=== PATIENT | female | born 1965 | race Caucasian/White ===

== ENCOUNTER 2017-09-06 12:48 | Emergency (ER) | payer MEDICAID ==
[2017-09-06 12:49] VITALS: BMI 27.9
[2017-09-06 13:01] VITALS: TEMP 98.5
[2017-09-06] MEDS ORDERED: Oxycodone/Acetaminophen 5/325 mg Tab PO STA (13:19)
[2017-09-06] MEDS ORDERED: Oxycodone/Acetaminophen 5/325 mg Tab ONE (13:32)
--- NOTE | 2017-09-06 13:39 | C.PDOC ---
History Of Present Illness 51 yo female w/PMhx of RhA, Osteoporosis come in for evaluation of lower back pain, left ihp pain developed 2 weeks ago after sustained mechanical fall. Pt also c/o left hand pain over 5th finger, noted some bruising for past few days. Otherwise, pt denies head injury, LOC, syncope, denies sever headache, dizziness , neck pain, visual changes, focal deficits, CP, SOB, dyspnea, diaphoresis, abd. pain, denies new weakness, sensory tor vascular deficits, denies obvious deformity. Time Seen by Provider: 09/06/17 13:07 Chief Complaint (Nursing): Upper Extremity Problem/Injury History Per: Patient Past Medical History Reviewed: Historical Data, Nursing Documentation, Vital Signs Vital Signs: Last Vital Signs Temp 98.5 F 09/06/17 12:57 Pulse 107 H 09/06/17 12:57 Resp 18 09/06/17 12:57 BP 104/68 09/06/17 12:57 Pulse Ox 97 09/06/17 13:42 - Medical History PMH: Anxiety, Arthritis (Chronic), Asthma, Back Problems (Herniated Discs), HTN , Hypothyroidism, Rheumatoid Arthritis Family History: States: Unknown Family Hx - Social History Hx Tobacco Use: Yes (Decreased from 2.5ppd to 4 cig/day) Hx Alcohol Use: No Hx Substance Use: No - Immunization History Hx Tetanus Toxoid Vaccination: Yes Hx Influenza Vaccination: Yes Hx Pneumococcal Vaccination: Yes Review Of Systems Except As Marked, All Systems Reviewed And Found Negative. Constitutional: Negative for: Fever, Chills Eyes: Negative for: Vision Change ENT: Negative for: Ear Discharge, Nose Discharge Cardiovascular: Negative for: Chest Pain, Palpitations, Edema, Light Headedness Respiratory: Negative for: Cough, Shortness of Breath, Wheezing Gastrointestinal: Negative for: Nausea, Vomiting, Abdominal Pain, Diarrhea Genitourinary: Negative for: Incontinence Musculoskeletal: Positive for: Back Pain, Hand Pain Skin: Positive for: Bruising Neurological: Negative for: Weakness, Numbness, Altered Mental Status, Headache , Dizziness Physical Exam - Physical Exam Appears: Well, Non-toxic, No Acute Distress Skin: Normal Color, Warm, Dry, No Rash Head: Atraumatic, Normacephalic Eye(s): bilateral: PERRL Nose: No Flaring, No Discharge, No Deformity, No Tenderness Oral Mucosa: Moist Tongue: Normal Appearing Lips: Normal Appearing Throat: No Drooling Neck: Normal ROM, Trachea Midline, No Midline Cervical Tenderness, No Paracervical Tenderness, No Step Off Deformity, Supple Cardiovascular: Rhythm Regular, No Murmur, No JVD Respiratory: No Decreased Breath Sounds, No Accessory Muscle Use, No Stridor, No Wheezing Gastrointestinal/Abdominal: Soft, No Tenderness, No Distention, No Guarding Back: No Vertebral Tenderness, Paraspinal Tenderness (diffuse lumbar, no midline tendeness, no skin changes.) Extremity: Normal ROM (B/L UEs and LEs.), Tenderness ( medil aspect Left 5th proximal pahalnx with trace ecchymoses.), Capillary Refill (less than 2sec), No Deformity Neurological/Psych: Oriented x3, Normal Speech, Normal Motor, Normal Sensation, Normal Reflexes ED Course And Treatment O2 Sat by Pulse Oximetry: 97 - Other Rad pelvis w/B/L hips X-Ray: Read By Radiologist Interpretation: PROCEDURE: Radiographs of the pelvis and bilateral hips. HISTORY: injury. COMPARISON: Pelvis radiograph dated 12/02/2015. FINDINGS: BONES: Pelvis: Unremarkable. Right hip:Unremarkable. Left hip:Unremarkable. JOINTS: Right hip: Unremarkable. Left hip: Unremarkable. Sacroiliac Joints: Unremarkable. Pubic symphysis: Unremarkable. SOFT TISSUES: Normal. OTHER FINDINGS: None. IMPRESSION: Unremarkable radiographs of the hips and pelvis. left hand X-Ray: Read By Radiologist Interpretation: PROCEDURE: Left Hand Radiographs. HISTORY: injury. COMPARISON: Anti radiographs data 09/15/2011. FINDINGS: BONES: Nonspecific curvilinear density in the soft tissues adjacent to the radial styloid for which avulsion fracture cannot be excluded. JOINTS: Unremarkable. SOFT TISSUES: Normal. OTHER FINDINGS: None. IMPRESSION: Nonspecific curvilinear density in the soft tissues adjacent to the radial styloid for which an avulsion fracture cannot be excluded. Progress Note: On re-evaluation, pt is afebrile, hemodynamicaly stable. Non- toxic. Ambulatory in Ed with stable gait. head: AT/NC. neck: Supple, (-) midline tenderness, (-) JVD. Lungs: CTA B/L, BS equal B/L. Abd: benign. Neuorlogicaly intact. Imaging reviews, Pelvis with hips xray appeas without acute finidngs. left hand (+) ? radial styloid fx. Volar splint applied to left wrist. Pt has clinical findings c/w lumbar strain, left hip contusion, left hand pain r/o left wrist fracture, and swelling r/o athritis. Pt advised. ref. to f/u with PMD in 2-3 days for re-eval. return to ED if any worsening or new changes. Disposition Counseled Patient/Family Regarding: Studies Performed, Diagnosis, Need For Followup, Rx Given - Disposition Referrals: Adonay Warren MD [Staff Provider] - Disposition: HOME/ ROUTINE Disposition Time: 13:40 Condition: STABLE Additional Instructions: Light duty to Left hand Splint for 1 week Follow up with PMD, Activity Leader in 2-3 days for re-evaluation and further tx as need return to ED if any worsening or new changes. Instructions: Low Back Pain in Adults, Back Exercises, Wrist Sprain (DC) Forms: [facility] (Yakut) - Clinical Impression Clinical Impression: Lumbar radiculopathy, Arthritis, Wrist fracture
--- NOTE | 2017-09-06 13:51 | RAD ---
PROCEDURE: Left Hand Radiographs. HISTORY: injury COMPARISON: Anti radiographs data 09/15/2011. FINDINGS: BONES: Nonspecific curvilinear density in the soft tissues adjacent to the radial styloid for which avulsion fracture cannot be excluded. JOINTS: Unremarkable. SOFT TISSUES: Normal. OTHER FINDINGS: None. IMPRESSION: Nonspecific curvilinear density in the soft tissues adjacent to the radial styloid for which an avulsion fracture cannot be excluded.
--- NOTE | 2017-09-06 13:52 | RAD ---
PROCEDURE: Radiographs of the pelvis and bilateral hips HISTORY: injury COMPARISON: Pelvis radiograph dated 12/02/2015. FINDINGS: BONES: Pelvis: Unremarkable. Right hip:Unremarkable. Left hip:Unremarkable. JOINTS: Right hip: Unremarkable. Left hip: Unremarkable. Sacroiliac Joints: Unremarkable. Pubic symphysis: Unremarkable. SOFT TISSUES: Normal. OTHER FINDINGS: None. IMPRESSION: Unremarkable radiographs of the hips and pelvis.
[2017-09-06 14:17] VITALS: BP 110/71; PULSE 88; RESP 16
[2017-09-06 14:18] VITALS: O2SAT 97
== END 2017-09-06 14:16 | disposition home or self-care (01) ==
LOC: C.ER 12:48
DX: M54.16 Radiculopathy, lumbar region (principal); M19.90 Unspecified osteoarthritis, unspecified site; S62.102A Fracture of unspecified carpal bone, left wrist, initial encounter for closed fracture; W19.XXXA Unspecified fall, initial encounter; I10 Essential (primary) hypertension; M06.9 Rheumatoid arthritis, unspecified

== ENCOUNTER 2017-12-14 09:08 | Emergency (ER) | payer MEDICAID ==
[2017-12-14 09:22] VITALS: BMI 31.6
[2017-12-14] MEDS ORDERED: Sodium Chloride 0.9% 1,000 ML IV ONE (09:41)
--- NOTE | 2017-12-14 09:46 | C.PDOC ---
History Of Present Illness 52 y/o female presents to ED with c/o abdominal pain for 3 days worse with movement. Patient states pain was first on RUQ now diffuse. Patient admits to urinary stress incontinence and reports last bowel movement last night that was normal. Patient denies vomiting, diarrhea, constipation or any other complaints at this time. Time Seen by Provider: 12/14/17 09:09 Chief Complaint (Nursing): Abdominal Pain History Per: Patient History/Exam Limitations: no limitations Onset/Duration Of Symptoms: Days Current Symptoms Are (Timing): Still Present Location Of Pain/Discomfort: Diffuse, RUQ Past Medical History Reviewed: Historical Data, Nursing Documentation, Vital Signs Vital Signs: Last Vital Signs Temp 97.8 F 12/14/17 14:00 Pulse 72 12/14/17 14:00 Resp 17 12/14/17 14:01 BP 108/77 12/14/17 14:00 Pulse Ox 95 12/14/17 19:06 - Medical History PMH: Anxiety, Arthritis (Chronic), Asthma, Back Problems (Herniated Discs), HTN , Hypothyroidism, Rheumatoid Arthritis Surgical History: No Surg Hx Family History: States: No Known Family Hx - Social History Hx Tobacco Use: Yes (Decreased from 2.5ppd to 4 cig/day) Hx Alcohol Use: No Hx Substance Use: No - Immunization History Hx Tetanus Toxoid Vaccination: Yes Hx Influenza Vaccination: Yes (2018) Hx Pneumococcal Vaccination: Yes Review Of Systems Constitutional: Negative for: Fever, Chills Gastrointestinal: Positive for: Abdominal Pain. Negative for: Vomiting, Diarrhea, Constipation Genitourinary: Positive for: Frequency Musculoskeletal: Negative for: Back Pain Skin: Negative for: Rash Physical Exam - Physical Exam Appears: Non-toxic, No Acute Distress Skin: Warm, Dry, No Rash Head: Atraumatic, Normacephalic Eye(s): bilateral: Normal Inspection Ear(s): Bilateral: Normal Oral Mucosa: Moist Throat: No Erythema, No Exudate Neck: Normal ROM, Supple Chest: Symmetrical, No Tenderness Cardiovascular: Rhythm Regular, No Friction Rub, No Murmur Respiratory: Normal Breath Sounds, No Rales, No Rhonchi, No Wheezing Gastrointestinal/Abdominal: Soft, Tenderness (Moderate diffuse greater on RUQ), No Distention, No Guarding, No Rebound, No Hernia Back: Normal Inspection, No CVA Tenderness Extremity: Normal ROM, No Tenderness, No Swelling Neurological/Psych: Oriented x3, Normal Speech, Normal Cognition ED Course And Treatment - Laboratory Results Result Diagrams: 12/14/17 10:12 12/14/17 10:12 O2 Sat by Pulse Oximetry: 95 (RA) Pulse Ox Interpretation: Normal Medical Decision Making Medical Decision Making: labs are WNLs, vitals are WNLs. On re-exam, the patient is resting comfortably. Lungs are CTA, heart is RRR, abdomen is soft, non-tender and the patient is tolerating PO well. Patient is ambulatory with steady gait. Follow up with the medical doctor within 1-2 days without fail. Return if worsened. Disposition - Disposition Referrals: Adonay Warren MD [Staff Provider] - Disposition: HOME/ ROUTINE Disposition Time: 13:34 Condition: STABLE Additional Instructions: Follow up with the medical doctor within 1-2 days without fail. Return if worsened. Prescriptions: Famotidine [Pepcid] 20 mg PO BID #20 tab Naproxen [Naprosyn] 500 mg PO BID #20 tab Instructions: Acute Abdomen (Belly Pain), Adult (DC) Forms: [employer] (Colombian) - POA Present On Arrival: None - Clinical Impression Clinical Impression: Abdominal pain - PA / COSTUMER ASSISTANT / Resident Statement MD/DO has reviewed & agrees with the documentation as recorded. - Scribe Statement The provider has reviewed the documentation as recorded by the Cherelleibcarlos Rice All medical record entries made by the Macho were at my direction and personally dictated by me. I have reviewed the chart and agree that the record accurately reflects my personal performance of the history, physical exam, medical decision making, and the department course for this patient. I have also personally directed, reviewed, and agree with the discharge instructions and disposition.
[2017-12-14] MEDS ORDERED: Sodium Chloride 0.9% 1,000 ML ONE (10:09)
[2017-12-14 10:16] LABS: BASO % 0.3 % (0.0-2.0); EOS # 0.1 K/uL (0.0-0.7); EOS % 1.7 % (0.0-4.0); HEMOGLOBIN 10.5 g/dL (11.0-16.0); LYMPH # 1.3 K/uL (1.0-4.3); LYMPH % 27.7 % (20.0-40.0); MEAN CELL VOLUME 100.4 fL (81.0-99.0); MEAN CORPUSCULAR HEMOGLOBIN 34.4 pg (27.0-31.0); MEAN CORPUSCULAR HGB CONC 34.3 g/dL (33.0-37.0); MONO # 0.4 K/uL (0.0-0.8); MONO % 7.8 % (0.0-10.0); NEUT % 62.5 % (50.0-75.0); RBC 3.05 Mil/uL (3.80-5.20); RED CELL DISTRIBUTION WIDTH 14.7 % (11.5-14.5); WHITE BLOOD COUNT 4.7 K/uL (4.8-10.8)
[2017-12-14 10:27] LABS: ALB/GLOB RATIO 1.4 (1.0-2.1); ALBUMIN 3.9 g/dL (3.5-5.0); ALT/SGPT 23 U/L (9-52); AST/SGOT 15 U/L (14-36); BLOOD UREA NITROGEN 18 mg/dL (7-17); CALCIUM 9.1 mg/dl (8.6-10.4); GFR NON-AFRICAN AMERICAN > 60; LIPASE 27 U/L (23-300)
[2017-12-14 10:33] LABS: HCG,QUALITATIVE URINE NEGATIVE (NEGATIVE); SQUAMOUS EPITHIAL < 1 /hpf (0-5); URINE BILIRUBIN NEGATIVE (NEGATIVE); URINE BLOOD NEGATIVE (NEGATIVE); URINE CLARITY Clear (Clear); URINE COLOR Yellow (YELLOW); URINE GLUCOSE (UA) NORMAL (Normal); URINE LEUKOCYTE ESTERASE NEG Leu/uL (Negative); URINE PROTEIN NEGATIVE (NEGATIVE); URINE UROBILINOGEN NORMAL mg/dL (0.2-1.0)
--- NOTE | 2017-12-14 10:50 | US ---
Date of service: 12/14/2017 HISTORY: RUQ abd pain COMPARISON: None available TECHNIQUE: Sonographic evaluation of the right upper quadrant of the abdomen. FINDINGS: LIVER: Measures 20.1 cm in length. Echogenic liver may be seen in setting of hepatic parenchymal disease or fatty infiltration. No focal hepatic mass identified. The main portal vein appears patent with normal directional flow. No intrahepatic bile duct dilatation. GALLBLADDER: No gallstones. No gallbladder wall thickening or pericholecystic edema. Negative sonographic Faulkner's sign as assessed by the real estate agency principal. COMMON BILE DUCT: Measures 3 mm. PANCREAS: Not well-visualized. RIGHT KIDNEY: Measures 11.3 x 4.2 x 5.0 cm. No obstructing calculus or hydronephrosis identified. AORTA: Limited visualization appears grossly unremarkable. IVC: Limited visualization appears grossly unremarkable. OTHER FINDINGS: None . IMPRESSION: Hepatomegaly. Echogenic liver may be seen in setting of hepatic parenchymal disease or fatty infiltration.
--- NOTE | 2017-12-14 11:19 | RAD ---
Date of service: 12/14/2017 PROCEDURE: CHEST RADIOGRAPH, 1 VIEW HISTORY: abd pain COMPARISON: 05/30/2016 FINDINGS: LUNGS: Clear. PLEURA: No pneumothorax or pleural fluid seen. CARDIOVASCULAR: Normal. OSSEOUS STRUCTURES: No significant abnormalities. VISUALIZED UPPER ABDOMEN: Normal. OTHER FINDINGS: None. IMPRESSION: No active disease. No interval pathology noted
[2017-12-14] MEDS ORDERED: Iodixanol 320 MG/ML 100 ML BOTTLE IV ONE (11:20)
--- NOTE | 2017-12-14 12:43 | CT ---
Date of service: 12/14/2017 PROCEDURE: CT Abdomen and Pelvis with contrast HISTORY: lower abd pain COMPARISON: Abdominal ultrasound performed 12/14/17 TECHNIQUE: Contrast dose: 100 mL Visipaque IV Radiation dose: Total exam DLP = 1053.97 mGy-cm. This CT exam was performed using one or more of the following dose reduction techniques: Automated exposure control, adjustment of the mA and/or kV according to patient size, and/or use of iterative reconstruction technique. FINDINGS: LOWER THORAX: No visible consolidation, pleural effusion, or pneumothorax. LIVER: Punctate hepatic calcification, likely granuloma. Hypoattenuation of the liver compatible with hepatic steatosis. Hepatomegaly. GALLBLADDER AND BILE DUCTS: Unremarkable. PANCREAS: Unremarkable. SPLEEN: Innumerable splenic calcifications, likely granulomas. ADRENALS: Unremarkable. KIDNEYS AND URETERS: No hydronephrosis or obstructing calculus identified. VASCULATURE: Atherosclerotic calcifications of the aorta. No aortic aneurysm. BOWEL: Stomach is nondistended. Lack of oral contrast limits evaluation for bowel pathology. Bowel loops appear within normal limits of caliber without evidence of obstruction. APPENDIX: The appendix appears within normal limits of caliber. No secondary signs of acute appendicitis. PERITONEUM: Small pelvic free fluid. No definite free air. LYMPH NODES: No bulky adenopathy identified. BLADDER: Mildly thick-walled urinary bladder appears otherwise unremarkable. REPRODUCTIVE: Uterus is present. BONES: No acute osseous abnormality is detected. OTHER FINDINGS: None. IMPRESSION: Small pelvic free fluid. Mildly thick-walled urinary bladder appears otherwise unremarkable. Recommend correlation with urinalysis. Hepatomegaly. Hepatic steatosis. Evidence of prior granulomatous infection. Additional findings as above.
[2017-12-14 14:01] VITALS: BP 108/77; PULSE 72; RESP 17; TEMP 97.8
[2017-12-14 18:58] VITALS: O2SAT 95
== END 2017-12-14 14:01 | disposition home or self-care (01) ==
LOC: C.ER 09:08
DX: R10.11 Right upper quadrant pain (principal); I10 Essential (primary) hypertension; E03.9 Hypothyroidism, unspecified; M06.9 Rheumatoid arthritis, unspecified; F17.210 Nicotine dependence, cigarettes, uncomplicated
CPT/HCPCS: 71045; 74177; 76705; 80053; 81001; 83690; 84703; 85025; 96361; 96374; 99285; J1885; J7030; Q9967

== ENCOUNTER 2018-05-19 09:10 | Outpatient (CLI) | payer MEDICAID | END 2018-05-19 09:11 | disposition home or self-care (01) | LOC: C.RADIC 09:10 | DX: M53.1 Cervicobrachial syndrome (principal) ==